=== PATIENT | female | born 1965 | race Asian ===

== ENCOUNTER 2017-07-29 11:08 | Observation (INO) | payer MEDICAID ==
[~2017-07-29 11:08] MED LIST: CEFAZOLIN 2 GM/50 ML (PMX) 50 ML IVPB; SOD CHLORIDE 0.9% 1,000 ML IV
[2017-07-29 12:19] LABS: ADD MAN DIFF? NO
[2017-07-29 12:25] LABS: BASOPHILS % 0.6 % (0.0-2.0); EOSINOPHILS # 0.2 10^3/ul (0.0-0.5); EOSINOPHILS % 5.3 % (0.0-7.0); HEMATOCRIT 36.8 % (37.0-47.0); HEMOGLOBIN 12.7 g/dl (12.0-16.0); LYMPHOCYTES # 1.5 10^3/ul (0.8-2.9); LYMPHOCYTES % 42.7 % (15.0-51.0); MEAN CORPUSCULAR HEMOGLOBIN 31.8 pg (29.0-33.0); MEAN CORPUSCULAR HGB CONC 34.5 g/dl (32.0-37.0); MEAN CORPUSCULAR VOLUME 92.2 fl (82.0-101.0); MEAN PLATELET VOLUME 12.5 fl (7.4-10.4); MONOCYTE # 0.4 10^3/ul (0.3-0.9); MONOCYTES % 9.8 % (0.0-11.0); NEUTROPHIL # 1.5 10^3/ul (1.6-7.5); NEUTROPHILS % 41.6 % (39.0-77.0); PLATELET COUNT 158 10^3/UL (140-415); RED BLOOD COUNT 3.99 10^6/ul (4.20-5.40); RED CELL DISTRIBUTION WIDTH 11.9 % (11.5-14.5)
[2017-07-29 12:25] LABS: WHITE BLOOD COUNT 3.6 10^3/ul (4.8-10.8)
[2017-07-29 12:29] LABS: HOLD TRANSMISSIONS 1
[2017-07-29 12:43] LABS: INR 0.91; PROTIME 12.3 Sec (11.9-14.9)
[2017-07-29 12:51] LABS: ALANINE AMINOTRANSFERASE 29 IU/L (13-69); ALBUMIN 4.5 g/dl (3.3-4.9); ALKALINE PHOSPHATASE 47 IU/L (42-121); ANION GAP 14 (8-16); ASPARTATE AMINO TRANSFERASE 28 IU/L (15-46); BILIRUBIN,INDIRECT 0.4 mg/dl (0-1.1); BILIRUBIN,TOTAL 0.4 mg/dl (0.2-1.3); CARBON DIOXIDE 28 mmol/L (21-31); CHLORIDE 108 mmol/L (97-110); GLUCOSE 93 mg/dl (70-220); TOTAL PROTEIN 7.7 g/dl (6.1-8.1)
[2017-07-29 12:53] LABS: BLOOD UREA NITROGEN 10 mg/dl (7-20); CALCIUM 9.3 mg/dl (8.4-10.2); CREATININE 0.68 mg/dl (0.44-1.00); POTASSIUM 4.1 mmol/L (3.5-5.1); SODIUM 146 mmol/L (135-144)
[2017-07-29] MEDS ORDERED: ROCURONIUM 50 MG INJ (12:58)
[2017-07-29] MEDS ORDERED: SUCCINYLCHOLINE CHLORIDE 100 MG/5 ML SYG IV (12:58)
[2017-07-29] MEDS ORDERED: PROPOFOL 40 ML (12:58)
[2017-07-29] MEDS ORDERED: MIDAZOLAM 1 MG/ML 2 ML INJ (12:58)
[2017-07-29] MEDS ORDERED: FENTAnyl 50 MCG/ML VIAL (12:59)
[2017-07-29] MEDS ORDERED: LIDOCAINE 1% (MDV) 20 ML INJ (13:04)
[2017-07-29] MEDS ORDERED: ONDANSETRON 4 MG INJ (13:07)
[2017-07-29] MEDS ORDERED: DEXAMETHASONE 4 MG/ML 1 ML INJ (13:08)
[2017-07-29 13:09] LABS: PARTIAL THROMBOPLASTIN TIME 44.5 Sec (25.0-35.0)
[2017-07-29] MEDS: ISOSULFAN BLUE 1% 5 ML INJ SC (13:23)
[2017-07-29] MEDS ORDERED: GLYCOPYRROLATE 0.4 MG INJ (14:06)
[2017-07-29] MEDS ORDERED: SUGAMMADEX SODIUM 200 MG/2 ML VIAL IV (14:07)
[2017-07-29] MEDS ORDERED: HYDROmorphONE 2 MG/ML SYG (14:11)
[2017-07-29] MEDS: STERILE WATER 1L IRRIG BTL IRR (14:19)
[2017-07-29] MEDS ORDERED: ESMOLOL 10 ML (14:44)
[2017-07-29] MEDS ORDERED: morphine 2 MG INJ IV (15:00)
[2017-07-29] MEDS ORDERED: ACETAMINOPHEN 1000MG/100ML IV 100 ML (15:14)
[2017-07-29] MEDS ORDERED: PROCHLORPERAZINE 10 MG INJ IV (15:30)
[2017-07-29] MEDS ORDERED: MEPERIDINE 25 MG INJ IV (15:30)
[2017-07-29] MEDS ORDERED: METOCLOPRAMIDE 10 MG INJ IV (15:30)
[2017-07-29] MEDS ORDERED: ONDANSETRON 4 MG INJ IV (15:30)
[2017-07-29] MEDS: HYDROmorphONE (0.2 MG/ML) 10ML SYG IV (15:38)
[2017-07-29] MEDS: D5W-0.45 NACL + KCL 20 MEQ 1,000 ML IV ×2 (17:52→23:00)
[2017-07-29] MEDS ORDERED: OXYCODONE/ACETAMINOPHEN (5/325) TAB PO (18:30)
[2017-07-29] MEDS: ONDANSETRON 4 MG INJ IV (20:51)
[2017-07-30] MEDS: D5W-0.45 NACL + KCL 20 MEQ 1,000 ML IV ×3 (02:04→23:00)
[2017-07-30 05:38] LABS: ADD MAN DIFF? NO
[2017-07-30 05:45] LABS: BASOPHILS % 0.1 % (0.0-2.0); HEMATOCRIT 30.8 % (37.0-47.0); HEMOGLOBIN 10.6 g/dl (12.0-16.0); LYMPHOCYTES % 15.1 % (15.0-51.0); MEAN CORPUSCULAR HEMOGLOBIN 32.4 pg (29.0-33.0); MEAN CORPUSCULAR HGB CONC 34.4 g/dl (32.0-37.0); MEAN CORPUSCULAR VOLUME 94.2 fl (82.0-101.0); MEAN PLATELET VOLUME 12.4 fl (7.4-10.4); MONOCYTE # 0.6 10^3/ul (0.3-0.9); MONOCYTES % 8.1 % (0.0-11.0); NEUTROPHIL # 5.3 10^3/ul (1.6-7.5); NEUTROPHILS % 76.4 % (39.0-77.0); PLATELET COUNT 141 10^3/UL (140-415); RED BLOOD COUNT 3.27 10^6/ul (4.20-5.40)
[2017-07-30 05:45] LABS: WHITE BLOOD COUNT 6.9 10^3/ul (4.8-10.8)
[2017-07-30 07:42] LABS: ANION GAP 17 (8-16); BLOOD UREA NITROGEN 6 mg/dl (7-20); CALCIUM 8.9 mg/dl (8.4-10.2); CARBON DIOXIDE 24 mmol/L (21-31); CHLORIDE 111 mmol/L (97-110); CREATININE 0.56 mg/dl (0.44-1.00); GLUCOSE 143 mg/dl (70-220); POTASSIUM 4.8 mmol/L (3.5-5.1); SODIUM 147 mmol/L (135-144)
[2017-07-30] MEDS: ACETAMINOPHEN 1000MG/100ML IV 100 ML IVPB (08:31)
[2017-07-31] MEDS: D5W-0.45 NACL + KCL 20 MEQ 1,000 ML IV (03:59)
[2017-07-31 05:41] LABS: ADD MAN DIFF? NO
[2017-07-31 05:45] LABS: WHITE BLOOD COUNT 4.9 10^3/ul (4.8-10.8)
[2017-07-31 05:45] LABS: BASOPHILS % 0.4 % (0.0-2.0); EOSINOPHILS # 0.2 10^3/ul (0.0-0.5); EOSINOPHILS % 3.7 % (0.0-7.0); HEMATOCRIT 31.4 % (37.0-47.0); HEMOGLOBIN 10.7 g/dl (12.0-16.0); LYMPHOCYTES % 41.5 % (15.0-51.0); MEAN CORPUSCULAR HGB CONC 34.1 g/dl (32.0-37.0); MEAN PLATELET VOLUME 12.6 fl (7.4-10.4); MONOCYTE # 0.3 10^3/ul (0.3-0.9); MONOCYTES % 6.7 % (0.0-11.0); NEUTROPHIL # 2.4 10^3/ul (1.6-7.5); NEUTROPHILS % 47.7 % (39.0-77.0); PLATELET COUNT 145 10^3/UL (140-415); RED BLOOD COUNT 3.34 10^6/ul (4.20-5.40); RED CELL DISTRIBUTION WIDTH 12.3 % (11.5-14.5)
[2017-07-31 06:17] LABS: ANION GAP 13 (8-16); BLOOD UREA NITROGEN 3 mg/dl (7-20); CALCIUM 8.9 mg/dl (8.4-10.2); CARBON DIOXIDE 28 mmol/L (21-31); CHLORIDE 111 mmol/L (97-110); GLUCOSE 94 mg/dl (70-220); POTASSIUM 4.1 mmol/L (3.5-5.1); SODIUM 148 mmol/L (135-144)
== END 2017-07-31 14:45 | disposition home or self-care (01) ==
LOC: SDS 11:08 → MS1 07-31 00:49 → SDS 11:19 → REC 14:47 → MS1 17:36
DX: C50.912 Malignant neoplasm of unspecified site of left female breast (principal); N60.22 Fibroadenosis of left breast; N60.92 Unspecified benign mammary dysplasia of left breast; D72.819 Decreased white blood cell count, unspecified; Z80.3 Family history of malignant neoplasm of breast
CPT/HCPCS: 19301; 71045; 80048; 80053; 85025; 85610; 85730; 88307; 93005